=== PATIENT | male | born 1980 | race Caucasian/White ===

== ENCOUNTER → 2021-11-15 | Outpatient (CLI) | payer BC ==
--- NOTE | 2021-11-15 17:59 | US ---
EXAMINATION TYPE: US venous doppler duplex LE LT DATE OF EXAM: 11/15/2021 5:49 PM COMPARISON: NONE CLINICAL HISTORY: M79.662 Pain left calf, V29.9XXD. Left calf pain post trauma on 11/09/21 SIDE PERFORMED: Left TECHNIQUE: The lower extremity deep venous system is examined utilizing real time linear array sonog elian with graded compression, doppler sonography and color-flow sonography. VESSELS IMAGED: Common Femoral Vein Deep Femoral Vein Greater Saphenous Vein * Femoral Vein Popliteal Vein Small Saphenous Vein * Proximal Calf Veins (* superficial vessels) DESCRIPTION: Grayscale, color doppler, spectral doppler imaging performed of the deep veins of the l ower extremities. There is normal flow, compressibility, vascular waveforms. IMPRESSION: NEGATIVE FOR DEEP VENOUS THROMBOSIS, LEFT LOWER EXTREMITY.
== END | disposition home or self-care (01) ==
LOC: RADUSWWP 17:21
PROVIDERS: ATTEND Family Medicine
DX: M79.662 Pain in left lower leg (principal); S89.92XA Unspecified injury of left lower leg, initial encounter